=== PATIENT | female | born 1970 | race Caucasian/White ===

== ENCOUNTER 2024-03-10 13:54 | Inpatient (IN) | payer BC, MEDICARE, SELFPAY ==
[2024-03-10] VITALS (13 sets, daily range): BP systolic 84–109; BP diastolic 61–76; BMI 14.1; BMI 16.4
[2024-03-10 07:22] LABS: Glucose - Point of Care 42 mg/dl (70-99)
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
[2024-03-10 07:50] LABS: Glucose - Point of Care 40 mg/dl (70-99)
[2024-03-10 07:51] LABS: % Basophils 1.8 % (0-2); % Eosinophils 0.8 % (0-6); % Immature Granulocytes 0.3 % (0-0.5); % Lymphocytes 45.2 % (20.5-51.1); % Neutrophils 34.9 % (42.2-75.2); Absolute Basophils 0.1 10^3/uL (0-0.2); Absolute Lymphocytes 1.8 10^3/uL (1.2-3.4); Absolute Monocytes 0.7 10^3/uL (0.1-0.6); Absolute Neutrophils 1.4 10^3/uL (1.4-6.5); Hematocrit 36.6 % (37.0-47.0); Mean Corp Hgb Conc. 32.8 g/dL (33.0-37.0); Mean Corpuscular Hgb 25.8 pg (27.0-31.0); Mean Corpuscular Volume 78.7 fL (81.0-99.0); Mean Platelet Volume 10.4 fL (7.4-10.4); Nucleated Red Blood Cells % 0 %; Platelet Count 182 10^3/uL (130-400); Red Blood Cell Count 4.65 10^6/uL (4.20-5.40); Red Cell Dist. Width 14.4 % (11.5-14.5); White Blood Cell Count 3.9 10^3/uL (4.8-10.8)
[2024-03-10] MEDS: DEXTROSE 50% SYRINGE 25 GRAMS IV (07:54)
[2024-03-10 08:15] LABS: Glucose - Point of Care 204 mg/dl (70-99)
[2024-03-10 08:18] LABS: Urine Albumin Trace (Neg - Trace); Urine Bilirubin Negative (Negative); Urine Character Clear (Clear); Urine Color Yellow; Urine Glucose Negative (Negative); Urine Ketone 3+ (Negative); Urine Leukocyte Negative (Negative); Urine Nitrite Negative (Negative); Urine Occult Blood Negative (Negative); Urine Urobilinogen Negative (Neg - 1+)
[2024-03-10 08:19] LABS: Glucose - Point of Care 222 mg/dl (70-99)
[2024-03-10 08:26] LABS: ALT (SGPT) 20 U/L (0-35); AST (SGOT) 46 U/L (14-36); Albumin 4.4 g/dl (3.5-5.0); Alkaline Phosphatase 82 U/L (38-126); Blood Urea Nitrogen 49 mg/dl (7-17); Calcium 9.8 mg/dl (8.4-10.2); Chloride 71 mmol/L (98-107); Estimated Creatinine Clearance 9 ml/min; Glucose 41 mg/dl (70-99); Potassium 2.6 mmol/L (3.5-5.1); Sodium 135 mmol/L (135-145); Total Bilirubin 1.1 mg/dl (0.2-1.3); Total Protein 7.4 g/dl (6.3-8.2); eGFR 14.89
[2024-03-10 08:32] LABS: Carbon Dioxide 38 mmol/L (22-30)
[2024-03-10 08:43] LABS: Amphetamines Negative (Negative); Barbiturates Negative (Negative); Benzodiazepines Negative (Negative); Buprenorphine Negative (Negative); Cocaine Negative (Negative); Marijuana Negative (Negative); Methadone Negative (Negative); Methamphetamines Negative (Negative); Opiates Positive (Negative); Phencyclidine Negative (Negative); Tricyclic Antidepressants Negative (Negative)
[2024-03-10 08:49] LABS: TSH Reflex To Free T4 0.63 uIU/ml (0.47-4.68)
[2024-03-10 08:57] LABS: Fentanyl, Urine Negative (Negative)
[2024-03-10] MEDS: KCL 270 MEQ IV (09:03)
[2024-03-10] MEDS: KCL ELIXIR 40 MEQ PO (09:05)
[2024-03-10 10:47] LABS: Glucose - Point of Care 165 mg/dl (70-99)
--- NOTE | 2024-03-10 12:14 | W.CON.NEPH ---
Consultation
-
Date/Time Consultation Requested: March 10, 2024 9:15 AM
Date/Time Consultation Performed: March 10, 2024 1215
Requesting Provider: Dr. Aguayo
Performing Provider: Dr. Gambino
Reason for Consultation: Acute renal failure/hypokalemia
Medical History
-
Chief Complaint: Acute renal failure
History of Present Illness:
The patient is a 54-year-old female with a past medical history of chronic pain requiring narcotic therapy including morphine. She is also maintained on Lyrica in the setting of her chronic pain. She has a history of hypothyroidism maintained on
levothyroxine. She is maintained on Savella for depression and chronic pain. Patient was here last night with her daughter who is presently in crisis. reports this morning however patient was very fatigued and could barely wake her up.
Patient has a history of known kidney issues and chronic pain. She is prescribed pain medicine by her family doctor Dr. Mccallum and pain medication includes morphine Lyrica and Savella. The patient has been seen here previously. She was seen here
March 2022 where she presented from home unresponsive and was found to be COVID-positive at that time. She has noted to have anemia of chronic disease history of eating disorder and was found to have severe protein calorie malnutrition during
that admission along with hypothyroidism
Past Medical History
Chronic narcotic requiring pain (bone pain)
Depression
Previous history of renal failure
Hypothyroidism
History of
Chronic lower extremity neuropathy
Social History
Tobacco: Non-Smoker
Alcohol: None
Family History
no CKD
Allergies / Home Medications
Allergy/AdvReac Type Severity Reaction Status Date / Time
No Known Allergies Allergy Verified 03/10/24 07:17
�Medication �Instructions �Recorded �Confirmed �Type
levothyroxine 25 mcg tablet 25 mcg PO HS Thyroid 12/08/18 03/10/24 History
milnacipran 100 mg tablet (Savella) 200 mg PO HS depression/chronic 12/08/18 03/10/24 History
pain
ibandronate 150 mg tablet 150 mg PO QMONTH Osteoporosis 03/04/22 03/10/24 History
morphine 30 mg tablet,extended 30 mg PO Q12H chronic pain syndrome 03/10/24 03/10/24 History
release
polyethylene glycol 3350 17 gram 17 g PO DAILYPRN PRN constipation 03/10/24 03/10/24 History
oral powder packet
pregabalin 300 mg capsule (Lyrica) 600 mg PO HS chronic pain syndrome 03/10/24 03/10/24 History
ropinirole 0.25 mg tablet 0.25 mg PO HS Neurological 03/10/24 03/10/24 History
Condition
Review of Systems
-
Unable to obtain full review of systems at this time due to: Acuity (Patient exceedingly lethargic and can only answer weakly)
History Source: Patient
All other systems: Negative unless noted
Constitutional: Fatigue and Other (letheragy, chronic pain)
Neurological: Other (Neuropathy of feet)
Physical Exam
Vital Signs
Vital Signs
Temp Pulse Resp BP Pulse Ox
98.2 F 87 12 94/70 94
03/10/24 07:18 03/10/24 09:00 03/10/24 08:15 03/10/24 08:05 03/10/24 08:15
Lab Results
03/10/24 07:44
03/10/24 07:44
WBC 3.9 10^3/uL (4.8-10.8) L 03/10/24 07:44
RBC 4.65 10^6/uL (4.20-5.40) 03/10/24 07:44
Hgb 12.0 g/dL (12.0-16.0) 03/10/24 07:44
Hct 36.6 % (37.0-47.0) L 03/10/24 07:44
Plt Count 182 10^3/uL (130-400) 03/10/24 07:44
Sodium 135 mmol/L (135-145) 03/10/24 07:44
Potassium 2.6 mmol/L (3.5-5.1) L* 03/10/24 07:44
Chloride 71 mmol/L (98-107) L 03/10/24 07:44
Carbon Dioxide 38 mmol/L (22-30) H 03/10/24 07:44
BUN 49 mg/dl (7-17) H 03/10/24 07:44
Creatinine 3.5 mg/dL (0.6-1.0) H 03/10/24 07:44
eGFR 14.89 03/10/24 07:44
Glucose 41 mg/dl (70-99) L* 03/10/24 07:44
Calcium 9.8 mg/dl (8.4-10.2) 03/10/24 07:44
Albumin 4.4 g/dl (3.5-5.0) 03/10/24 07:44
Physical Exam
General: Arousable appears chronically ill nontoxic , cachectic
HEENT: PERRL, EOMI, Anicteric, Conjunctivae Clear, Ear/Nose Intact, Hearing Normal, Oropharynx Clear/Moist, Dentition Intact, Facial Symmetry, Neck Supple, Neck: Trachea Midline, No JVD and No Thyromegaly, no Bruits
Respiratory: Clear to auscultation bilaterally with normal lung exersion
Cardiac: S1/S2 and Regular Rate/Rhythm
Breast: Deferred by me
Abdomen: Soft, Nontender, Nondistended, Normal Bowel Sounds and No Hepatosplenomegaly
Rectal: Deferred by Provider
Genito-urinary: No Costovertebral Tenderness
Extremities: No Clubbing, No Cyanosis and No pitting Edema
Skin: No Rash or open lesions
Neuro: Patient too lethargic to perform adequate neurological exam
Hematologic/Lymphatic: No Cervical Lymphadenopathy, No Submandibular Lymphadenopathy and No Supraclavicular Lymphadenopathy
Psych: Withdrawn poorly responsive but arousable
Vascular: plus 1 pedal and radial pulses
Data Reviewed
-
Ultrasound: Other (Kidney and bladder ultrasound to be obtained and reviewed)
Medical Tests (Nuc Med, Echo etc): Other (EKG report reviewed normal sinus rhythm [address] and T wave abnormality in the inferior and anterior lateral leads per report)
Labs: Labs Reviewed by me (BMP CBC, UA notes 3 plus ketones, trace protein no blood)
Old Records: Reviewed (Creatinine 0.5 as of March 10, 2022)
Assessment/Plan
-
Impression:
Presentation with increased fatigue lethargy/hypotension
Acute kidney injury
Chronic pain requiring narcotic therapy
Depression
Hypokalemia
Hypothyroidism
Metabolic alkalosis
Plan:
RC:
-Will need to obtain baseline labs as apparently patient has seen nephrology in the past
-Acute kidney injury likely due to strong prerenal stimulus from hypotension
-Maintain isotonic saline at 125cc per hour with 20meq KCL per liter
-Check urine sodium and urine creatinine urine protein (randoms)
-Kidney and bladder ultrasound to be ordered and reviewed
-Hold narcotics and Lyrica in setting of lethargy and acute renal failure
-Check bladder scan with low threshold for Valadez catheter placement, patient may have bladder retention
-Replete potassium with 80 mill equivalents total
-Metabolic alkalosis likely precipitating hypokalemia
-Metabolic alkalosis could be contraction or could be compensatory for respiratory acidosis, would recommend ABG given patient's lethargy to evaluate for hypercapnia
-
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
[2024-03-10] MEDS: D5/0.9% SODIUM CHLORIDE 1000 IV ×2 (14:53→21:35)
[2024-03-10 15:16] LABS: Venous Blood Gas B.E. 20.3 mmol/L (-4 to +4); Venous Blood Gas HCO3 46.5 mmol/L (22-27); Venous Blood Gas pCO2 61 mmHg (35-48); Venous Blood Gas pH 7.49 (7.32-7.43); Venous Blood Gas pO2 158 mmHg (30-50)
[2024-03-10 15:31] LABS: Blood Urea Nitrogen 43 mg/dl (7-17); Calcium 8.7 mg/dl (8.4-10.2); Chloride 86 mmol/L (98-107); Estimated Creatinine Clearance 12 ml/min; Glucose 59 mg/dl (70-99); Potassium 3.3 mmol/L (3.5-5.1); Sodium 136 mmol/L (135-145); eGFR 20.33
[2024-03-10] MEDS: NSS 500 IV (15:34)
[2024-03-10 15:40] LABS: Carbon Dioxide 36 mmol/L (22-30)
[2024-03-10] MEDS: REQUIP 0.25 MG PO (21:26)
[2024-03-10] MEDS: TYLENOL 650 MG PO (21:27)
[2024-03-10] MEDS: HEPARIN 5000 UNITS SC (21:27)
[2024-03-11 03:00] VITALS: BP 95/59
[2024-03-11] MEDS: D5/0.9% SODIUM CHLORIDE 1000 IV (04:20)
[2024-03-11] MEDS: SYNTHROID 25 MCG PO (04:55)
[2024-03-11 06:00] VITALS: BMI 17.4
[2024-03-11 08:08] VITALS: BP 95/56
[2024-03-11] MEDS: HEPARIN 5000 UNITS SC ×2 (08:47→21:27)
[2024-03-11] MEDS: TYLENOL 650 MG PO (08:48)
[2024-03-11 08:50] LABS: Hematocrit 29.7 % (37.0-47.0); Hemoglobin 9.8 g/dL (12.0-16.0); Mean Corpuscular Hgb 26.8 pg (27.0-31.0); Mean Corpuscular Volume 81.4 fL (81.0-99.0); Red Blood Cell Count 3.65 10^6/uL (4.20-5.40); Red Cell Dist. Width 14.6 % (11.5-14.5); White Blood Cell Count 3.2 10^3/uL (4.8-10.8)
[2024-03-11 09:23] LABS: Mean Platelet Volume 10.8 fL (7.4-10.4); Platelet Count 124 10^3/uL (130-400)
[2024-03-11 09:24] LABS: Absolute Neutrophils -Man Diff 1.1 10^3/uL (1.4-6.5); Band Neutrophils 0 % (0-3); Eosinophils 2 % (0-6); Lymphocytes 45 % (20-51); Monocytes 18 % (2-9); Normal RBC Morphology Yes; Platelets Checked YES; Segmented Neutrophils 35 % (42-75); Total Cells Counted 100
[2024-03-11 09:27] LABS: Blood Urea Nitrogen 29 mg/dl (7-17); Calcium 8.4 mg/dl (8.4-10.2); Carbon Dioxide 35 mmol/L (22-30); Chloride 97 mmol/L (98-107); Estimated Creatinine Clearance 23 ml/min; Glucose 100 mg/dl (70-99); Magnesium 1.9 mg/dl (1.6-2.3); Potassium 2.8 mmol/L (3.5-5.1); Sodium 139 mmol/L (135-145); eGFR 35.42
--- NOTE | 2024-03-11 10:10 | W.PN.HOSP.TC ---
Today's Communication/Plan
-
repeat VBG
monitor K and Hg later today
PT/OT
OK for diet
Hold sedating medications
continue fluids
appreciate renal
Assessment / Plan
Assessment / Plan
Ms. Venita Paula is a 54 yo woman with hx chronic bone pain/neuropathy with opiate dependence, protein calorie malnutrition in setting of eating disorder, hypothyroidism, anemia of chronic disease, admission 03/30 for encephalopathy in setting of
covid presents to the ER with severe somnolence, unable to wake her up.
Renal US 03/10/24
IMPRESSION:
The kidneys are normal.
Ureteral jets were not visualized and the patient was unable to empty her bladder
Acute Renal Failure
Hypokalemia
Hypoglycemia
-likely from dehydration/hypovolemia with resultant ATN
-F/U urine studies
-US results above; patient since urinated on her own
-continue D5 NS @ 125
-renal function improving
-replete K and repeat this afternoon
-repeat VBG - patient's pH was 7.49; likely metabolic compensation from chronic retnetion
Anemia
-patient likely hemoconcentrated on arrival, no e/o indy bleeding
-repeat Hg later today
Chronic bone pain and Neuropathy with Opiate Dependence
TME 2/2 polypharmacy and poor clearance in setting of renal failure
-hold MS Contin - poor clearance with renal failure
-hold SOURCING ASSOCIATE Lyrica
-PT/OT
-patient awake enough for diet this morning
Depression
-OK to continue SOURCING ASSOCIATE Savella
Severe protein calorie malnutrition
-dietary consult
Hypothyroidism
-F/U TSH
-SOURCING ASSOCIATE Synthroid - change to 6AM
DVT PPx hep subQ
FULL CODE
51 MINUTES spent on patient care
Anticipated Discharge: > 48 hours
Subjective/Interval History
-
Date of Service: March 11, 2024
somnolent but wakes up and answers questions, wants to eat
Objective Data
-
Labs:
Laboratory Results
03/11/24 03/11/24 03/11/24
07:37 14:00 16:00
WBC 3.2 L
Hgb 9.8 L Cancelled Pending
Hct 29.7 L
Plt Count 124 L D
Sodium 139 Pending
Potassium 2.8 L Pending
Chloride 97 L Pending
Carbon Dioxide 35 H Pending
BUN 29 H Pending
Creatinine 1.7 H Pending
Glucose 100 H Pending
Calcium 8.4 Pending
Vital Signs:
Vital Signs
Temp Pulse Resp BP Pulse Ox
97.8 F 72 18 95/56 99
03/11/24 08:08 03/11/24 08:08 03/11/24 08:08 03/11/24 08:08 03/11/24 09:49
I&O
03/10/24 03/11/24 03/12/24
06:59 06:59 06:59
Intake Total 1500 / 1500
Balance 1500 / 1500
Review of Systems
-
History Source: Patient
All other systems: Reviewed and negative
Physical Exam
-
General: No Apparent Distress, Appears Chronically Ill and Cachectic
Respiratory: Clear to Auscultation; Negative Wheezes or Rhonchi
Cardiac: Regular Rhythm and S1/S2; Negative Murmur
GI: Soft, Nontender, Nondistended and Normal Bowel Sounds
Musculoskeletal: No Clubbing, No Cyanosis and No Edema
Skin: Warm
Neuro: Other (oriented x 3, sedated but easily arousable - improved from yesterday )
Psych: Calm
Data Reviewed
-
Diagnostic Radiology: Report Reviewed by me
Labs: Labs Reviewed by me
[2024-03-11] MEDS: KCL 160 MEQ IV (10:40)
[2024-03-11] MEDS: LIDOCAINE 4% PATCH 1 PATCH TOPICAL (10:41)
[2024-03-11] MEDS: KCL 40 MEQ PO (10:41)
[2024-03-11 11:04] LABS: Urine Sodium 102 mmol/L (30-90)
[2024-03-11 11:38] VITALS: BP 102/63
[2024-03-11 11:46] LABS: Venous Blood Gas B.E. 10.9 mmol/L (-4 to +4); Venous Blood Gas HCO3 36.3 mmol/L (22-27); Venous Blood Gas pCO2 51 mmHg (35-48); Venous Blood Gas pH 7.46 (7.32-7.43); Venous Blood Gas pO2 97 mmHg (30-50)
[2024-03-11 11:47] LABS: Venous Blood Gas O2 Therapy 95
--- NOTE | 2024-03-11 11:51 | W.PN.NEPH.PH ---
Today's Communication / Plan
-
Maintain IV fluids
Replete potassium
Assessment/Plan
-
Impression:
Presentation with increased fatigue lethargy/hypotension
Acute kidney injury
Chronic pain requiring narcotic therapy
Depression
Hypokalemia
Hypothyroidism
Metabolic alkalosis
Plan:
RC:
-Will need to obtain baseline labs as apparently patient has seen nephrology in the past
-Acute kidney injury likely due to strong prerenal stimulus from hypotension
-Creatinine level down to 1.7 with volume resuscitation, support pre renal causality
-Maintain D5NS saline at 100cc per hour with 20meq KCL per liter
-need more aggressive potassium repletion
-Checked urine sodium and urine creatinine : fena was greater the 1%,
-Kidney and bladder ultrasound to be ordered and reviewed:normal
-Holding narcotics and Lyrica in setting of lethargy and acute renal failure
-Checked bladder scan with low threshold for Valadez catheter placement
-Metabolic alkalosis likely precipitating hypokalemia
-Metabolic alkalosis could be contraction or could be compensatory for respiratory acidosis, VBG was done
-
-
-
Date of Service: March 11, 2024
CC / HPI / ROS
-
Chief Complaint:
Acute kidney injury
History of Present Illness:
Remains hypotensive on isotonic IV fluids
Hypokalemia persist
Creatinine down from 3.5-1.7
Review of Systems:
Urine output not recorded
No fevers
Labs
-
Labs:
WBC 3.2 10^3/uL (4.8-10.8) L 03/11/24 07:37
RBC 3.65 10^6/uL (4.20-5.40) L 03/11/24 07:37
Hct 29.7 % (37.0-47.0) L 03/11/24 07:37
Plt Count 124 10^3/uL (130-400) L D 03/11/24 07:37
eGFR 35.42 03/11/24 07:37
Albumin 4.4 g/dl (3.5-5.0) 03/10/24 07:44
Physical Exam
-
Vital Signs:
Vital Signs
Temp Pulse Resp BP Pulse Ox
98.1 F 75 18 102/63 100
03/11/24 11:38 03/11/24 11:38 03/11/24 11:38 03/11/24 11:38 03/11/24 11:38
Cardiovascular:: Regular rate and rhythm
Respiratory:: Bilateral: CTA
Lung Excursion:: Normal
Abdomen:: Nontender
Extremity Edema:: None: Bilateral:
Valadez Catheter: No
Other Findings::
General: remains lethargic
[2024-03-11 11:54] VITALS: BMI 17.4
[2024-03-11] MEDS: D5/0.9% with KCL 20 MEQ 1000 IV ×2 (13:10→21:56)
[2024-03-11] MEDS: MIRALAX 17 GRAMS PO (13:15)
[2024-03-11 15:35] VITALS: BP 134/69
[2024-03-11 19:36] VITALS: BP 109/68
[2024-03-11] MEDS: REQUIP 0.25 MG PO (21:27)
[2024-03-11 23:16] VITALS: BP 114/70
[2024-03-12 03:30] VITALS: BP 110/66
[2024-03-12 05:07] VITALS: BMI 18.7
[2024-03-12] MEDS: SYNTHROID 25 MCG PO (06:01)
[2024-03-12 07:30] VITALS: BP 123/80
[2024-03-12 09:12] LABS: Hematocrit 28.9 % (37.0-47.0); Hemoglobin 9.4 g/dL (12.0-16.0); Mean Corp Hgb Conc. 32.5 g/dL (33.0-37.0); Mean Corpuscular Hgb 26.1 pg (27.0-31.0); Mean Corpuscular Volume 80.3 fL (81.0-99.0); Mean Platelet Volume 11.1 fL (7.4-10.4); Platelet Count 113 10^3/uL (130-400); Red Cell Dist. Width 14.8 % (11.5-14.5); White Blood Cell Count 6.1 10^3/uL (4.8-10.8)
[2024-03-12] MEDS: MIRALAX 17 GRAMS PO (09:22)
[2024-03-12] MEDS: LIDOCAINE 4% PATCH 1 PATCH TOPICAL (09:22)
[2024-03-12] MEDS: TYLENOL 650 MG PO (09:22)
[2024-03-12] MEDS: HEPARIN 5000 UNITS SC (09:24)
[2024-03-12] MEDS: D5/0.9% with KCL 20 MEQ 1000 IV (09:29)
[2024-03-12 09:51] LABS: Blood Urea Nitrogen 24 mg/dl (7-17); Calcium 8.3 mg/dl (8.4-10.2); Carbon Dioxide 23 mmol/L (22-30); Chloride 110 mmol/L (98-107); Estimated Creatinine Clearance 41 ml/min; Glucose 91 mg/dl (70-99); Potassium 4.8 mmol/L (3.5-5.1); Sodium 141 mmol/L (135-145); eGFR > 60.00
[2024-03-12 11:08] VITALS: BP 111/75
[2024-03-12 11:25] VITALS: BP 121/83; PULSE 86; O2SAT 100
--- NOTE | 2024-03-12 11:48 | W.PN.NEPH.PH ---
Today's Communication / Plan
-
see plan
Assessment/Plan
-
Impression:
Presentation with increased fatigue lethargy/hypotension
Acute kidney injury
Chronic pain requiring narcotic therapy
Depression
Hypokalemia
Hypothyroidism
Metabolic alkalosis
Plan:
RC:
RC-improving cr to 1 with IVF felt to be prerenal with low BPs
BPs now improved, bland UA and non acute renal US
hypokalemia-k normalized
met alkalosis is improving, ?contraction alkalosis on admit
ketonuria on admit too, encourage po intake
if she d/c today need BMP on Friday
ok to resume Lyrica
She should follow PCP and nephro if needed whom she saw before
-
-
Date of Service: March 12, 2024
CC / HPI / ROS
-
Chief Complaint:
Acute kidney injury
History of Present Illness:
BP better
Hypokalemia resolved
Creatinine down to 1
Review of Systems:
Urine output not recorded
No fevers
feels well , no n/v
Labs
-
Labs:
WBC 6.1 10^3/uL (4.8-10.8) 03/12/24 08:09
RBC 3.60 10^6/uL (4.20-5.40) L 03/12/24 08:09
Hgb 9.4 g/dL (12.0-16.0) L 03/12/24 08:09
Hct 28.9 % (37.0-47.0) L 03/12/24 08:09
Plt Count 113 10^3/uL (130-400) L 03/12/24 08:09
Sodium 141 mmol/L (135-145) 03/12/24 08:09
Potassium 4.8 mmol/L (3.5-5.1) D 03/12/24 08:09
Chloride 110 mmol/L (98-107) H 03/12/24 08:09
Carbon Dioxide 23 mmol/L (22-30) 03/12/24 08:09
BUN 24 mg/dl (7-17) H 03/12/24 08:09
Creatinine 1.0 mg/dL (0.6-1.0) 03/12/24 08:09
eGFR > 60.00 03/12/24 08:09
Glucose 91 mg/dl (70-99) 03/12/24 08:09
Calcium 8.3 mg/dl (8.4-10.2) L 03/12/24 08:09
Albumin 4.4 g/dl (3.5-5.0) 03/10/24 07:44
Physical Exam
-
Vital Signs:
Vital Signs
Temp Pulse Resp BP Pulse Ox
98.7 F 93 18 111/75 97
03/12/24 11:08 03/12/24 11:08 03/12/24 11:08 03/12/24 11:08 03/12/24 11:08
Cardiovascular:: Regular rate and rhythm
Respiratory:: Bilateral: CTA
Lung Excursion:: Normal
Abdomen:: Nontender and Soft
Extremity Edema:: None: Bilateral:
Valadez Catheter: No
--- NOTE | 2024-03-12 11:57 | W.PN.HOSP.TC ---
Today's Communication/Plan
-
Ok for DC
Assessment / Plan
Assessment / Plan
Ms. Venita Paula is a 54 yo woman with hx chronic bone pain/neuropathy with opiate dependence, protein calorie malnutrition in setting of eating disorder, hypothyroidism, anemia of chronic disease, admission 03/30 for encephalopathy in setting of
covid presents to the ER with severe somnolence, unable to wake her up.
Renal US 03/10/24
IMPRESSION:
The kidneys are normal.
Ureteral jets were not visualized and the patient was unable to empty her bladder
Acute Renal Failure
Hypokalemia
Hypoglycemia
-likely from dehydration/hypovolemia with resultant ATN
-F/U urine studies
-US results above; patient since urinated on her own
-s/p fluids
-renal function improving with creatinine 1 today
Anemia
-patient likely hemoconcentrated on arrival, no e/o indy bleeding
-Hg stable
Chronic bone pain and Neuropathy with Opiate Dependence
TME 2/2 polypharmacy and poor clearance in setting of renal failure
-resume MS contin at daily dosing
-OK to resume Lyrica
-PT/OT - no needs
Depression
-OK to continue MUSIC PROMOTER Savella
Severe protein calorie malnutrition
-dietary consult
Hypothyroidism
-F/U TSH
-MUSIC PROMOTER Synthroid - change to 6AM
DVT PPx hep subQ
FULL CODE
51 MINUTES spent on patient care
Anticipated Discharge: Today
Subjective/Interval History
-
Date of Service: March 12, 2024
feeling better today
seen eating breakfast
wants to go home
Objective Data
-
Labs:
Laboratory Results
03/12/24
08:09
WBC 6.1
Hgb 9.4 L
Hct 28.9 L
Plt Count 113 L
Sodium 141
Potassium 4.8 D
Chloride 110 H
Carbon Dioxide 23
BUN 24 H
Creatinine 1.0
Glucose 91
Calcium 8.3 L
Vital Signs:
Vital Signs
Temp Pulse Resp BP Pulse Ox
98.7 F 93 18 111/75 97
03/12/24 11:08 03/12/24 11:08 03/12/24 11:08 03/12/24 11:08 03/12/24 11:08
I&O
03/11/24 03/12/24 03/13/24
06:59 06:59 06:59
Intake Total 1500 / 1500 660 / 660
Balance 1500 / 1500 660 / 660
Review of Systems
-
History Source: Patient
All other systems: Reviewed and negative
Physical Exam
-
General: No Apparent Distress, Appears Chronically Ill and Cachectic
Respiratory: Clear to Auscultation; Negative Wheezes or Rhonchi
Cardiac: Regular Rhythm and S1/S2; Negative Murmur
GI: Soft, Nontender, Nondistended and Normal Bowel Sounds
Musculoskeletal: No Clubbing, No Cyanosis and No Edema
Skin: Warm
Neuro: Other (more awake today, eating breakfast )
Psych: Calm
--- NOTE | 2024-03-12 12:01 | W.DS.TRANS ---
DC Summary - Industrial Truck Mechanic
-
Discharge Instructions:
Discharge Diagnosis/Procedures acute renal failure in the setting of
dehydration; poor clearance of morphine
resulting in somnolence
Diet Regular
Activity As tolerated
Driving Restrictions No driving
Bathing Restrictions None
Blood Work BMP on Friday03/16/24
Other Services PT,OT
Instructions:
Stand-Alone Forms:
Changes to Home Medications: Yes
Discharge Medications:
DC Medications w/original date entered in [employer]
levothyroxine 25 mcg tablet 25 mcg PO HS Thyroid 12/08/18
milnacipran 100 mg tablet (Savella) 200 mg PO HS depression/chronic pain 12/08/18
ibandronate 150 mg tablet 150 mg PO QMONTH Osteoporosis 03/04/22
polyethylene glycol 3350 17 gram oral powder packet 17 g PO DAILYPRN PRN constipation 03/10/24
pregabalin 300 mg capsule (Lyrica) 600 mg PO HS chronic pain syndrome 03/10/24
ropinirole 0.25 mg tablet 0.25 mg PO HS Neurological Condition 03/10/24
lidocaine 4 % topical patch 1 patch topical DAILY #30 ea 03/12/24
morphine 30 mg tablet,extended release 30 mg PO DAILY chronic pain syndrome #0 tabs 03/12/24
Home Medication Changes
decrease MC Contin from BID to daily
lidocaine patch
Pending Results: No
--- NOTE | 2024-03-12 12:19 | PTOTSP ---
pt currently demonstrates ability to complete simple ADLs, functional transfers, ambulation with no assistance. no acute OT needs identified at this time, will sign off.
[2024-03-12] MEDS: MS CONTIN (EXTENDED RELEASE) 15 MG PO (12:20)
[2024-03-12] MEDS: AFLURIA (36 mos+) 2024-2025 FORMULA 0.5 ML IM (12:21)
--- NOTE | 2024-03-12 13:30 | CM ---
ACE met with Venita at bedside to complete IA. She lives with her and 4 children in a 2 story home with 3 entry steps. PCP is Unique Bray. Pharmacy is [facility] in [place].
Plan: Discharge to home with family, no needs anticipated.
--- NOTE | 2024-03-12 14:42 | PTCARENOTE ---
Reviewed discharged instructions with patient. Patient verbalizes understanding of teaching and denies questions at this time. Tele and IV access removed. Patient awaiting family member for transport home.
--- NOTE | 2024-03-12 15:13 | W.DCSUMMARY ---
Discharge Summary
Discharge Data
Date of Admission: 03/10/24
Date of Discharge: 03/12/24
-
Pending Results: No
Hospital Course
Discharging Physician : Dr. Emelia Patrick
Disposition : Home
Primary care physician : Dr. Unique Bray
Principal Discharge diagnosis : Acute Renal Failure, Hypokalemia, TME 2/2 opioid build up in the setting of renal failure
Hospital Course :
Ms. Venita Paula is a 54 yo woman with hx chronic bone pain/neuropathy with opiate dependence, protein calorie malnutrition in setting of eating disorder, hypothyroidism, anemia of chronic disease, admission 03/30 for encephalopathy in setting of
covid presents to the ER with severe somnolence, unable to wake her up.
Triage VS with pulse 91, BP 91/65, labs with K+ 2.6, Cr 3.5, Glucose 41. She was admitted to medicine for treatment of acute renal failure and TME 2/2 opioid build up. Nephrology was consulted. She was given IVF with improvement in renal function
over the next 48 hours, creatinine 1 on day of discharge. K was repleted and stable pre discharge. Mentation improved. Patient is eating and drinking. Importance of hydration stressed. We will get repeat labs on Friday03/16/24.
She is told to only take MS Contin once per day and work with outpatient provider on titrating down dose.
Time spent on discharge was 35 minutes.
Important imaging findings :
Renal US 03/10/24
IMPRESSION:
The kidneys are normal.
Ureteral jets were not visualized and the patient was unable to empty her bladder
Procedure findings :
Discharge Plan
-
Patient Disposition: Home (Routine Discharge)
Discharge Diagnosis/Procedures: acute renal failure in the setting of dehydration; poor clearance of morphine resulting in somnolence
Condition: Good
Diet: Regular
Activity: As tolerated
Driving Restrictions: No driving
Bathing Restrictions: None
Blood Work: BMP on Friday03/16/24
Other Services: PT and OT
Referrals:
Unique Bray MD [Family Provider] - in less than 1 week
Additional Discharge Medication Instructions: Decrease MS Contin from twice a day to daily - discuss with PCP further weaning of this medication
Prescriptions:
New
lidocaine 4 % Adhesive Patch,Medicated
1 patch topical DAILY Qty: 30 0RF
Continued
levothyroxine 25 MCG tablet
25 mcg PO HS
Savella 100 MG tablet
200 mg PO HS
ibandronate 150 mg Tablet
150 mg PO QMONTH
ropinirole 0.25 mg Tablet
0.25 mg PO HS
pregabalin [Lyrica] 300 mg Capsule
600 mg PO HS
polyethylene glycol 3350 17 gram powder in packet
17 g PO DAILYPRN PRN (Reason: constipation)
Changed
morphine 30 mg Tablet Extended Release
30 mg PO DAILY Qty: 0 0RF
Discharge Orders:
Discharge Patient (As Directed); Ordered 03/12/24
Ordered By: Emelia Patrick
Discharge Date and Time
Print Language: BELIZEAN
[2024-03-12 15:26] VITALS: BP 132/91
== END 2024-03-12 17:28 | disposition home or self-care (01) | DRG 682 ==
LOC: 4 EAST ACU 13:54
PROVIDERS: Nurse Practitioner; Registered Nurse; ADMITTING PHYSICIAN Student in an Organized Health Care Education/Training Program; CONSULT PHYSICIAN Specialist; EMERGENCY PHYSICIAN Emergency Medicine; FAMILY PHYSICIAN Family Medicine
DX: N17.9 Acute kidney failure, unspecified (principal); E43 Unspecified severe protein-calorie malnutrition; G92.8 Other toxic encephalopathy; E87.3 Alkalosis; F11.20 Opioid dependence, uncomplicated; Z68.1 Body mass index [BMI] 19.9 or less, adult; D63.8 Anemia in other chronic diseases classified elsewhere; E03.9 Hypothyroidism, unspecified; F32.A Depression, unspecified; I95.9 Hypotension, unspecified; R54 Age-related physical debility; T40.2X5A Adverse effect of other opioids, initial encounter; E86.0 Dehydration; E87.6 Hypokalemia; G89.4 Chronic pain syndrome; F41.9 Anxiety disorder, unspecified; G47.00 Insomnia, unspecified; G57.90 Unspecified mononeuropathy of unspecified lower limb; K59.00 Constipation, unspecified; M81.0 Age-related osteoporosis without current pathological fracture; E16.2 Hypoglycemia, unspecified; R07.9 Chest pain, unspecified; Z79.890 Hormone replacement therapy; Z79.899 Other long term (current) drug therapy; Z90.49 Acquired absence of other specified parts of digestive tract; Z90.89 Acquired absence of other organs; Z86.16 Personal history of COVID-19; Z82.49 Family history of ischemic heart disease and other diseases of the circulatory system
CPT/HCPCS: 76770; 80048; 80053; 80306; 80307; 81003; 82570; 82805; 82962; 83735; 84300; 84443; 85025; 85027; 90686; 93005; 96360; 96361; 97162; 97165; 99285; G0008

== ENCOUNTER 2024-09-20 14:51 | Inpatient (IN) | payer MEDICARE, BC, SELFPAY ==
[2024-09-20] VITALS (14 sets, daily range): BP systolic 88–118; BP diastolic 54–74; BMI 16.9; BMI 16.5
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
[2024-09-20] MEDS: ZOFRAN 4 MG IV (11:13)
[2024-09-20] MEDS: NSS 1000 IV (11:14)
[2024-09-20 11:20] LABS: % Basophils 1.4 % (0-2); % Eosinophils 0.2 % (0-6); % Immature Granulocytes 0.4 % (0-0.5); % Lymphocytes 13.9 % (20.5-51.1); % Monocytes 13.2 % (1.7-9.3); % Neutrophils 70.9 % (42.2-75.2); Absolute Basophils 0.1 10^3/uL (0-0.2); Absolute Lymphocytes 0.8 10^3/uL (1.2-3.4); Absolute Monocytes 0.7 10^3/uL (0.1-0.6); Absolute Neutrophils 3.9 10^3/uL (1.4-6.5); Hematocrit 34.9 % (37.0-47.0); Hemoglobin 10.6 g/dL (12.0-16.0); Mean Corp Hgb Conc. 30.4 g/dL (33.0-37.0); Mean Corpuscular Hgb 24.9 pg (27.0-31.0); Mean Corpuscular Volume 81.9 fL (81.0-99.0); Mean Platelet Volume 10.1 fL (7.4-10.4); Nucleated Red Blood Cells % 0 %; Platelet Count 147 10^3/uL (130-400); Red Blood Cell Count 4.26 10^6/uL (4.20-5.40); Red Cell Dist. Width 15.2 % (11.5-14.5); White Blood Cell Count 5.5 10^3/uL (4.8-10.8)
[2024-09-20 11:52] LABS: ALT (SGPT) 23 U/L (0-35); AST (SGOT) 39 U/L (14-36); Albumin 3.9 g/dl (3.5-5.0); Alkaline Phosphatase 94 U/L (38-126); Blood Urea Nitrogen 37 mg/dl (7-17); Calcium 8.8 mg/dl (8.4-10.2); Carbon Dioxide 31 mmol/L (22-30); Chloride 98 mmol/L (98-107); Estimated Creatinine Clearance 34 ml/min; Glucose 41 mg/dl (70-99); Lipase 95 U/L (23-300); Potassium 3.5 mmol/L (3.5-5.1); Sodium 141 mmol/L (135-145); Total Bilirubin 0.6 mg/dl (0.2-1.3); Total Protein 6.8 g/dl (6.3-8.2); eGFR 53.79
[2024-09-20] MEDS: DEXTROSE 50% SYRINGE 25 GRAMS IV (11:53)
[2024-09-20 12:55] LABS: Glucose - Point of Care 151 mg/dl (70-99)
[2024-09-20] MEDS: ZOSYN 50 IV (14:02)
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
--- NOTE | 2024-09-20 14:28 | W.PN.UPDATE ---
Addendum entered and electronically signed by Jose Marrero MD 09/21/24 11:43:
Laboratory Tests
09/20/24
14:47
SARS-CoV-2 Antigen
Flu A & B NEG Negative
Original Note:
Update Note
Progress Note Update
This note serves as an addendum to the H&P by multi media specialist TIFFANIE Vickie HOUSTON
HPI
54F Non diabetic HX chr opiates depedent chronic bone pain/neuropathy, protein calorie malnutrition in setting of eating disorder, hypothyroidism, anemia of chronic disease, admission 03/30 for encephalopathy in setting of covid seen at ER for
found by family unresponsive. Reports HANLEY for last couple of days.
BG 41 on arrival 1 am of D50 was given -> BG 150
POx low 80s at the triage.
PHX; see above
General: Appears Chronically Ill and Other (very frail appearing )
HEENT: PERRLA
Respiratory: Clear; No Wheezes
Cardiac: S1/S2 and Regular Rhythm
GI: Soft and Non Tender
Musculoskeletal: No Edema
Skin: Warm and Dry; No Rash
Neuro: AO x 3
Psych: Calm
Reviewed VS:
VS
09/20/24
10:50 09/20/24
11:17 09/20/24
11:56
Pulse 91
Resp Rate 14
Blood pressure 108/65 88/63
SaO2 82 100
PE
Gen: chronically Ill and very frail appearing
HEENT: very dry lips and OM
Neck: supple
Lungs: CTA
Cor: RRR S1 S2
Abdomen: Soft and Non Tender
SUPERVISOR REWORK: very Lethargic, decreased responsiveness, arousable but non sustained wakefullness
MS: no edema
Psych : unable to examine due to lethargy
Labs
03/12/24 09/20/24
08:09 11:11
WBC 5.5
Hgb 9.4 L 10.6 L
Plt Count 113 L 147
Potassium 4.8 D 3.5
Chloride 110 H 98
Carbon Dioxide 23 31 H
BUN 24 H 37 H
Creatinine 1.0 1.2 H
eGFR > 60.00 53.79
Glucose 91 41 L*
AST 39 H
Data
Pending Covid
Pending Flu A & B
CXR: Rt ML PNA ?
CT of the head without contrast.
- Normal head CT. No significant change compared to prior study.
Last hospitalist admission: 03/10/24 - 03/12/24
Principal Discharge diagnosis : Acute Renal Failure, Hypokalemia, TME 2/2 opioid build up in the setting of renal failure
ASSESSMENT & PLAN
AMS due to Presumed lethargic TME due to multiple etiolgy including sepsis , hypoglycemia, SUPERVISOR REWORK meds
Dif etiology of sepsis and possible source of infection: PNA, aspiration, UTI , Covid, Flu
Associated hypoxic RF requiring 4 L NC O2
- Aspiration precaution with NPO for now including PO meds
- IVF D5 NS
- ABX: agree with IV Unasyn (n received Zosyn at ER )
- O2 to keep Ox > 93 %
- f/u UA
- Pending Covid
- Pending Flu A & B
- check random cortisol
- ST to eval for POs
RC due dehydration
- IV D5NS and f/u Cr
Chronic bone pain and Neuropathy with Opiate Dependence
- Holding MS cont , Lyrica for lethargy and aspiration precaution
Depression
0 Holding STONE PLANER Savella for Aspiration precaution
Severe protein calorie malnutrition
BMI 16, Wt 90 lbs
HX Eating disorder
- dietary consult
Hypothyroidism
-F/U TSH in AM to evalaute over medication
-STONE PLANER Synthroid - change to 6AM
DVT Px: SQH
Full code
IP TLM
[2024-09-20] MEDS: D5/0.45%NSS with KCL 20 MEQ 1000 IV (14:50)
[2024-09-20 15:16] LABS: COVID-19 Antigen Negative (Negative)
[2024-09-20 19:37] LABS: Venous Blood Gas B.E. 6.4 mmol/L (-4 to +4); Venous Blood Gas HCO3 33.7 mmol/L (22-27); Venous Blood Gas O2 Sat % 97.6 %; Venous Blood Gas pCO2 64 mmHg (35-48); Venous Blood Gas pH 7.33 (7.32-7.43); Venous Blood Gas pO2 176 mmHg (30-50)
[2024-09-20] MEDS: HEPARIN 5000 UNITS SC (20:48)
[2024-09-20] MEDS: UNASYN IV (20:48)
[2024-09-20 21:03] LABS: Urine Albumin 2+ (Neg - Trace); Urine Bilirubin Negative (Negative); Urine Character Clear (Clear); Urine Color Yellow; Urine Glucose 1+ (Negative); Urine Ketone 3+ (Negative); Urine Leukocyte Negative (Negative); Urine Nitrite Negative (Negative); Urine Occult Blood 2+ (Negative); Urine Specific Gravity 1.015 (<1.030); Urine Urobilinogen Negative (Neg - 1+)
[2024-09-20 21:14] LABS: Urine Hyaline Cast >15 /LPF (0-2); Urine Squamous Cell 0-2 /LPF (Few)
[2024-09-20 21:15] LABS: Urine Bacteria Few (Negative); Urine Red Blood Cell 50-60 /HPF (0-2)
[2024-09-20 21:39] LABS: Glucose - Point of Care 81 mg/dl (70-99)
[2024-09-20] MEDS: TYLENOL 650 MG PO (21:39)
[2024-09-20 23:33] LABS: Glucose - Point of Care 108 mg/dl (70-99)
--- NOTE | 2024-09-20 23:41 | PTCARENOTE ---
pt arrived from ED, pt is AAOx3, but drowsy and lethargic. pt does wake up to name and answers questions appropriately and then falls back asleep. bed alarm on. VSS. placed on 2L d/t drowsiness. NSR on the monitor. capnography on. pt is cachectic,
but able to turn self in bed without issues. skin intact. IV fluids infusing without issues. pt with some complaints of a slight HANLEY, pt was able to sit all the way up in bed by self and take two tylenol without issues. pt is NPO except meds, sips,
chips at this time. no complaints of SOB. care ongoing.
[2024-09-21] VITALS (12 sets, daily range): BP systolic 102–143; BP diastolic 71–91; BMI 16.5
[2024-09-21] MEDS: UNASYN IV ×4 (01:53→19:41)
[2024-09-21] MEDS: D5/0.45%NSS with KCL 20 MEQ 1000 IV ×2 (01:55→16:50)
[2024-09-21 04:25] LABS: Hematocrit 29.1 % (37.0-47.0); Hemoglobin 9.4 g/dL (12.0-16.0); Mean Corp Hgb Conc. 32.3 g/dL (33.0-37.0); Mean Corpuscular Hgb 25.4 pg (27.0-31.0); Mean Corpuscular Volume 78.6 fL (81.0-99.0); Mean Platelet Volume 10.2 fL (7.4-10.4); Platelet Count 123 10^3/uL (130-400); Red Cell Dist. Width 14.8 % (11.5-14.5)
[2024-09-21 04:53] LABS: Blood Urea Nitrogen 26 mg/dl (7-17); Calcium 8.3 mg/dl (8.4-10.2); Carbon Dioxide 25 mmol/L (22-30); Chloride 106 mmol/L (98-107); Estimated Creatinine Clearance 54 ml/min; Glucose 104 mg/dl (70-99); Magnesium 1.8 mg/dl (1.6-2.3); Potassium 3.6 mmol/L (3.5-5.1); Sodium 138 mmol/L (135-145); eGFR > 60.00
[2024-09-21 05:23] LABS: Cortisol, Random 10.5 ug/dl; TSH Reflex To Free T4 0.18 uIU/ml (0.47-4.68)
[2024-09-21 05:36] LABS: Glucose - Point of Care 86 mg/dl (70-99)
[2024-09-21 05:52] LABS: Free T4 1.11 ng/dl (0.78-2.19)
[2024-09-21] MEDS: TYLENOL 650 MG PO ×3 (05:58→20:23)
[2024-09-21] MEDS: HEPARIN 5000 UNITS SC ×2 (08:02→19:41)
--- NOTE | 2024-09-21 08:31 | PTCARENOTE ---
Patient received from prop sawyer. Patient resting comfortably in bed. AAO but extremely drowsy. Will arouse but for a short duration. VSS. No events noted overnight. Complaints of a headache, see MAR when applicable. Currently on EtCO2 to
monitor lethargy. No tests scheduled at this time. Call faye in reach.
--- NOTE | 2024-09-21 11:51 | W.PN.HOSP.TC ---
Today's Communication/Plan
-
add Doxy
Restart lower dose of Lyrica
Hold MS contin and also Risperidone
Diet
Assessment / Plan
Assessment / Plan
54-year-old with mental status change
CT head-normal
Chest x-ray right middle lobe atelectasis/pneumonia
CVS: S1-S2 normal
Chest: CTA B/L
Abdomen: Soft, NT / Bowel sounds present
Extremities: No edema
TIRE REPAIRER: Non focal exam, awake and alert now
# TME likely multifactorial secondary to hypoxia, RC and polypharmacy
Hold sedatives
Last admission in March 2020 for MS Contin dose was decreased from 30 mg twice daily to daily
She says she takes only in the morning now. ( List says BID)
Pt says she didn't overdose on meds.
# Acute hypoxic respiratory insufficiency likely
Secondary to right middle lobe pneumonia and respiratory suppression secondary to TME/meds
Continue supplemental oxygen
Continue Unasyn, add atypical coverage- Doxy
Influenza negative
# RC-resolved
# Hypoglycemia secondary to poor p.o. intake-follow labs
# Mild pancytopenia-check iron studies and follow-up labs
# Hypothyroidism-continue Synthroid
TSH noted. Repeat in 6 weeks
# Microscopic hematuria-outpatient follow-up
# Chronic pain opiate dependent
Hold MS Contin untill completely better
Savella, Lyrica to be restarted.( Lyrica 300 instead of 600)
Hold Risperidone
# History of ferguson and multiple surgeries related to that
# Depression on Savella
# Severe protein calorie malnutrition-dietary evaluation
# Osteoporosis on ibandronate as outpatient
# DVT prophylaxis-subcutaneous heparin
# Full code
D/W RN At bed side
D?W at bed side
Anticipated Discharge: 24 - 48 hours
Subjective/Interval History
-
Date of Service: September 21, 2024
Objective Data
-
Labs:
Laboratory Results
09/21/24
04:15
WBC 4.0 L
Hgb 9.4 L
Hct 29.1 L
Plt Count 123 L
Sodium 138
Potassium 3.6
Chloride 106
Carbon Dioxide 25
BUN 26 H
Creatinine 0.7
Glucose 104 H
Calcium 8.3 L
Vital Signs:
Vital Signs
Temp Pulse Resp BP Pulse Ox
97.5 F 92 19 106/81 100
09/21/24 07:25 09/21/24 06:00 09/21/24 06:00 09/21/24 06:00 09/21/24 10:39
[2024-09-21 11:58] LABS: Glucose - Point of Care 100 mg/dl (70-99)
[2024-09-21 13:01] LABS: Iron 84 ug/dl (37-170)
[2024-09-21 13:10] LABS: Percent Saturation 28 % (20-50); Total Iron Binding Capacity 299 ug/dl (265-497)
[2024-09-21] MEDS: VIBRAMYCIN 100 MG PO ×2 (13:32→21:14)
[2024-09-21 13:44] LABS: Ferritin 15.5 ng/ml (11.1-264.0)
[2024-09-21 13:58] LABS: Vitamin B12 289 pg/ml (239-931)
--- NOTE | 2024-09-21 15:18 | PTOTSP ---
Speech Therapy Evaluation:
Pt presents with grossly functional oropharyngeal swallow at bedside, however remains at increased risk of aspiration given current mentation/arousal in the setting of TME. RN reported concern re: patients ability to maintain alertness across
duration of meal. Pt's alertness adequate for duration of evaluation. Discussed recommendation for softer solids given aforementioned areas of concern, however pt politely declined diet downgrade at this time despite risk of aspiration. Currently
WBC decreased and CXR with RML atelectasis vs PNA. Recommend to continue current diet level with close supervision to ensure pt able to sustain appropriate level of alertness.
Recommend:
1. IDDSI Level 7 (regular) solids and thin liquids
2. Medications as tolerated
3. Strict aspiration precautions
4. Close supervision with meals
5. COMMUNITY HEALTH NURSE SUPERVISOR to follow to ensure tolerance of meal, determine need for future diet changes, and determine if pt would benefit from instrumental assessment
--- NOTE | 2024-09-21 17:30 | CM ---
Patient with Dx TME likely multifactorial secondary to hypoxia, RC and polypharmacy. O2 2L. ST - dysphagia diet.
Met with patient who states she resides with her in a 2 story home with 3 N[address].
She has been independent for ADLs and ambulation.
No prior DME, VN.
PCP - Unique Bray.
Pharmacy - [facility].
Plan watch for any home O2 needs.
Plan home.
[2024-09-21 17:43] LABS: Glucose - Point of Care 98 mg/dl (70-99)
[2024-09-21] MEDS: LYRICA 300 MG PO (21:16)
[2024-09-22] VITALS (9 sets, daily range): BP systolic 99–131; BP diastolic 62–97
[2024-09-22] MEDS: UNASYN IV ×2 (01:58→08:51)
--- NOTE | 2024-09-22 03:38 | PTCARENOTE ---
assumed care of patient. pt is AAOx3, drowsy, flat, lethargic, withdrawn. able to make needs known. complaints of HANLEY, PO tylenol given per MAR. refusing any food for dinner. IV fluids infusing. on 2L 100%, capnography monitoring on. able to use BSC
by self to have three BM's. care ongoing.
[2024-09-22] MEDS: D5/0.45%NSS with KCL 20 MEQ 1000 IV (05:33)
[2024-09-22] MEDS: HEPARIN 5000 UNITS SC (08:51)
[2024-09-22] MEDS: VIBRAMYCIN 100 MG PO (08:51)
[2024-09-22 09:14] LABS: Hematocrit 31.1 % (37.0-47.0); Hemoglobin 9.9 g/dL (12.0-16.0); Mean Corp Hgb Conc. 31.8 g/dL (33.0-37.0); Mean Corpuscular Hgb 25.7 pg (27.0-31.0); Mean Corpuscular Volume 80.8 fL (81.0-99.0); Mean Platelet Volume 10.3 fL (7.4-10.4); Platelet Count 155 10^3/uL (130-400); Red Blood Cell Count 3.85 10^6/uL (4.20-5.40); White Blood Cell Count 3.5 10^3/uL (4.8-10.8)
--- NOTE | 2024-09-22 09:38 | W.PN.HOSP.TC ---
Today's Communication/Plan
-
to see how pt is doing.
Home O2 eval.
Assessment / Plan
Assessment / Plan
54-year-old with mental status change
CT head-normal
Chest x-ray right middle lobe atelectasis/pneumonia
CVS: S1-S2 normal
Chest: CTA B/L
Abdomen: Soft, NT / Bowel sounds present
Extremities: No edema
COMMUNICATION SKILLS INSTRUCTOR: Non focal exam, awake and alert now
# TME likely multifactorial secondary to hypoxia, RC and polypharmacy
MS back to baseline
Last admission in March 2020 for MS Contin dose was decreased from 30 mg twice daily to daily
She says she takes only in the morning now. ( List says BID)
Pt says she didn't overdose on meds.
# Acute hypoxic respiratory insufficiency likely
Secondary to right middle lobe pneumonia and respiratory suppression secondary to TME/meds
Continue supplemental oxygen
Continue Augmentin and Doxy
Influenza negative
# RC-resolved
# Hypoglycemia secondary to poor p.o. intake-improved
# Mild pancytopenia-iron studies adequate. Low normal B12. Replace
# Hypothyroidism-continue Synthroid
TSH noted. Repeat in 6 weeks
# Microscopic hematuria-outpatient follow-up
# Chronic pain opiate dependent
Savella, Lyrica to restarted.( Lyrica 300 instead of 600)
Requip to be restarted
# History of ferguson and multiple surgeries related to that
# Depression on Savella
# Moderate protein calorie malnutrition-dietary evaluation
# Osteoporosis on ibandronate as outpatient
# DVT prophylaxis-subcutaneous heparin
# Full code
D/W RN At bed side
D/W
Called Dr Unique Bray to see if we can reduce MS Contin dose. Left a message for call back
Anticipated Discharge: Within 24 hours
Subjective/Interval History
-
Date of Service: September 22, 2024
Objective Data
-
Labs:
Laboratory Results
09/22/24
08:43
WBC 3.5 L
Hgb 9.9 L
Hct 31.1 L
Plt Count 155 D
Sodium Pending
Potassium Pending
Chloride Pending
Carbon Dioxide Pending
BUN Pending
Creatinine Pending
Glucose Pending
Calcium Pending
Vital Signs:
Vital Signs
Temp Pulse Resp BP Pulse Ox
97.7 F 68 9 99/62 100
09/22/24 07:45 09/22/24 06:00 09/22/24 06:00 09/22/24 06:00 09/22/24 08:57
I&O
09/21/24 09/22/24 09/23/24
06:59 06:59 06:59
Intake Total 1160 / 1160
Balance 1160 / 1160
[2024-09-22 10:13] LABS: Blood Urea Nitrogen 14 mg/dl (7-17); Calcium 8.7 mg/dl (8.4-10.2); Carbon Dioxide 25 mmol/L (22-30); Chloride 110 mmol/L (98-107); Estimated Creatinine Clearance 54 ml/min; Glucose 126 mg/dl (70-99); Sodium 139 mmol/L (135-145); eGFR > 60.00
[2024-09-22] MEDS: TYLENOL 650 MG PO ×2 (10:53→17:30)
[2024-09-22] MEDS: MS CONTIN (EXTENDED RELEASE) 15 MG PO (12:13)
--- NOTE | 2024-09-22 15:44 | W.PN.UPDATE ---
Update Note
Progress Note Update
Spoke to PCP office Dr.Covering Dr Bray.
Came back to see pt and explained.
They confirmed that patient is prescribed 30 mg twice daily dose of MS Contin however she mostly takes once a day and allowed to take extra dose if needed.
Also confirmed that the dose of Lyrica is 600. All the medicines were slowly trying to be weaned.
We discussed about Lyrica changed to 300mg. I started MS Contin 15 mg today and patient seems to be awake and alert
She is upset that dose of the medicines were changed.
Rationale about how she was when she came in discussed.
Patient states that she does not eat when she got sick on Friday and had not had anything to eat or drink and she was tired. She also stated that she only took medicines as prescribed. Did not take MS Contin on Friday.
I discussed that she can talk to her primary and go back up on the dose if it is decided between the 2 of them.
MS Contin will be changed to 30 mg daily as she seems to be stable on the 15 mg daily dose which she got today and also Lyrica to be 300 mg at night.
Pt AAO3 and conversant.
Will discharge on PO AB and above doses
OP Follow up with PCP
D/W RN
Discharge time 39 min
--- NOTE | 2024-09-22 15:57 | W.DS.TRANS ---
Addendum entered and electronically signed by Mary Cassidy MD 09/22/24 17:28:
Dictation- [id number]
Original Note:
DC Summary - Booth Cashier
-
Discharge Instructions:
Discharge Diagnosis/Procedures Encephalopathy
Acute hypoxic respiratory insufficiency
Acute kidney injury
Hypoglycemia
Hypothyroidism
Chronic pain
Depression
Moderate protein calorie malnutrition
Diet As tolerated,Other diet
Additional Diets Consider dietary supplements such as Ensure
Activity As tolerated,With assistance
Driving Restrictions As prior to admission
Blood Work Thyroid function test in 6 weeks. CMP,CBC 1 week
Others Tests X-ray of the chest and 4 to 6 weeks
Instructions:
Stand-Alone Forms:
Changes to Home Medications: Yes
Discharge Medications:
DC Medications w/original date entered in [employer]
levothyroxine 25 mcg tablet 25 mcg PO HS Thyroid 12/08/18
milnacipran 100 mg tablet (Savella) 200 mg PO HS depression/chronic pain 12/08/18
ibandronate 150 mg tablet 150 mg PO QMONTH Osteoporosis 03/04/22
ropinirole 0.25 mg tablet 0.25 mg PO HS Neurological Condition 03/10/24
amoxicillin 875 mg-potassium clavulanate 125 mg tablet 1 tab PO Q12 Lung/breathing issues #7 tabs 09/22/24
cyanocobalamin (vitamin B-12) 1,000 mcg tablet (Vitamin B-12) 1,000 mcg PO DAILY Supplement #20 tabs 09/22/24
doxycycline hyclate 100 mg capsule 100 mg PO BID Infection #7 caps 09/22/24
morphine 30 mg tablet,extended release 30 mg PO DAILY chronic pain syndrome #0 tabs 09/22/24
polyethylene glycol 3350 17 gram oral powder packet 17 g PO DAILY #0 ea 09/22/24
pregabalin 300 mg capsule (Lyrica) 300 mg PO HS chronic pain syndrome #0 caps 09/22/24
sennosides 8.6 mg tablet (Senna Lax) 8.6 mg PO BID Constipation #60 tabs 09/22/24
Home Medication Changes
Pending Results: No
--- NOTE | 2024-09-22 17:11 | CM ---
Home O2 Assessment today.
Met with patient who was preparing for d/c. The patient says she feels ready to go home today. IMM completed. Her will provide a ride home.
Plan home today.
--- NOTE | 2024-09-22 18:16 | PTCARENOTE ---
Pt for d/c home. IV and tele monitor removed. Instructions reviewed with pt. Belongings collected from room. Pt ambulated off unit with spouse.
== END 2024-09-22 18:14 | disposition home or self-care (01) | DRG 178 ==
LOC: IMU 14:51
PROVIDERS: Physician Assistant Medical; ADMITTING PHYSICIAN Internal Medicine; ATTENDING PHYSICIAN Hospitalist; EMERGENCY PHYSICIAN Student in an Organized Health Care Education/Training Program; FAMILY PHYSICIAN Family Medicine
DX: J69.0 Pneumonitis due to inhalation of food and vomit (principal); E44.0 Moderate protein-calorie malnutrition; F11.20 Opioid dependence, uncomplicated; N17.9 Acute kidney failure, unspecified; Z68.1 Body mass index [BMI] 19.9 or less, adult; R64 Cachexia; J98.11 Atelectasis; G93.40 Encephalopathy, unspecified; R09.02 Hypoxemia; E03.9 Hypothyroidism, unspecified; F32.A Depression, unspecified; R31.29 Other microscopic hematuria; G89.4 Chronic pain syndrome; M81.0 Age-related osteoporosis without current pathological fracture; Z86.16 Personal history of COVID-19; G62.9 Polyneuropathy, unspecified; F50.9 Eating disorder, unspecified; F41.9 Anxiety disorder, unspecified; Z79.890 Hormone replacement therapy; D63.8 Anemia in other chronic diseases classified elsewhere; E86.0 Dehydration; Z11.52 Encounter for screening for COVID-19
CPT/HCPCS: 70450; 71045; 80048; 80053; 81003; 81015; 82533; 82607; 82728; 82805; 82962; 83540; 83550; 83690; 83735; 84439; 84443; 85025; 85027; 87502; 87811; 92610; 96361; 96365; 96375; 99285